=== PATIENT | female | born 1960 | race Caucasian/White ===

== ENCOUNTER → 2019-04-29 06:31 | Outpatient (CLI) | payer MEDICARE, MEDICAID, SELFPAY ==
--- NOTE | 2019-04-29 12:30 | NEURO ---
NCS and/or EMG Patient Report Ordering Doctor: Chris Jeong DATE OF SERVICE: 04/29/19 Ammy Calvillo is a 58-year-old female who presents for electrodiagnostic testing of the upper limbs. She reports numbness and tingling in both hands and intermittent sharp pains. Electrodiagnostic findings: Median motor nerve demonstrates prolonged distal latency with normal amplitude and reduced conduction velocity on the right side. Normal left median motor response. Ulnar response is normal bilaterally. Prolonged median sensory latency at the wrist is noted bilaterally. Prolonged median palmar latency noted bilaterally. Needle EMG, all muscles tested in the upper limb showed no evidence of denervation with normal motor unit action potentials. Electrodiagnostic impression: This is an abnormal study in the upper limbs. 1. Electrodiagnostic findings demonstrate bilateral median mononeuropathy. This is consistent with a moderate right carpal tunnel syndrome and a mild left carpal tunnel syndrome. If there are any further questions, please do not hesitate to contact me
== END ==
PROVIDERS: Family Provider Family Medicine; PCP Family Medicine; Referring Provider Family Medicine; Visit Provider Family Medicine
DX: R20.0 Anesthesia of skin (principal); M79.601 Pain in right arm; M79.602 Pain in left arm
CPT/HCPCS: 95886; 95912

== ENCOUNTER → 2019-11-08 12:51 | Outpatient (CLI) | payer MEDICARE, MEDICAID, SELFPAY ==
[2019-11-08 13:33] LABS: Amphetamine Urine VISTA NEGATIVE (<1000 ng/mL); Barbiturate Urine VISTA NEGATIVE (< 200 ng/mL); Benzodiazepine Urine VISTA NEGATIVE (< 200 ng/mL); Cocaine Urine VISTA NEGATIVE (< 300 ng/mL); Ecstacy Urine VISTA NEGATIVE (< 500 ng/mL); Methadone Urine VISTA NEGATIVE (< 300 ng/mL); PCP Urine VISTA NEGATIVE (< 25 ng/mL); THC Urine VISTA NEGATIVE (< 50 ng/mL); Vista UDS pH Range 7
== END ==
PROVIDERS: PCP Family Medicine; Referring Provider Anesthesiology Pain Medicine; Visit Provider Anesthesiology Pain Medicine
DX: G89.4 Chronic pain syndrome (principal)
CPT/HCPCS: 80307